=== PATIENT | male | born 1995 | race Caucasian/White ===

== ENCOUNTER 2019-09-01 12:09 | Inpatient (IN) | payer MEDICARE ==
[~2019-09-01] VITALS: Ht 177.8 cm; Wt 73.0 kg
--- NOTE | 2019-09-01 13:10 | NUR ---
RECEIVED REPORT FROM LASHAY ZAFAR AT BEDSIDE. PT ONLY FEELS THAT HE IS DEHYDRATED AT THIS TIME AND HAD NO OTHER CONCERNS.
--- NOTE | 2019-09-01 13:30 | NUR ---
1315: PT SWABBED FOR COVID-19 WITH [facility] SW[facility] IN BOTH NARES. SAMPLE TAKEN TO THE LAB.
--- NOTE | 2019-09-01 13:37 | NUR ---
PT WAS TAKEN TO HIS RM. MET WITH HIS MOTHER MIRIAN WHO WAS STEPPING OUT TO GET SOOME LUNCH. PT HAD BEEN GIVEN PAIN MEDS AND WAS SLEEPING. GAVE COMFORT TO MIRIAN, SHE WILL RETURN LATER. SHE FEELS COMFORTABLE WITH HIS CARE AND GIVES HER THE FREEDOM TO LEAVE. WILL LET PT REST AND FOLLOW NEEDED
--- NOTE | 2019-09-01 14:36 | NUR ---
administered scheduled meds and started second bolus. SLOWED IT DOWN BY HALF IT IS IN HAND VEIN AND IS FAIRLY COLD. PT STATES HE IS FEELING BETTER THAN HE HAS IN DAYS WITH ALL THE FLUIDS.
--- NOTE | 2019-09-01 16:18 | NUR ---
PT UP THE BATHROOM AT THIS TIME. PT HAVING DIARRHEA. PT STEADY ON FEET AND HAS GOTTEN 1.8 L OF FLUID AT THIS TIME AND LOOKS MUCH BETTER THIS AFTERNOON.
--- NOTE | 2019-09-01 18:12 | NUR ---
PATIENT VS AND I&O'S DOCUMENTED. PATIENT IS SITTING IN BED TALKING TO HIS VISTOR. CALL LIGHT WITHIN REACH AND NO FURTHER NEEDS AT THIS TIME.
--- NOTE | 2019-09-01 19:15 | NUR ---
CHARGE NURSE REPORT RECEIVED FROM LASHAY
--- NOTE | 2019-09-01 19:44 | NUR ---
SHIFT REPORT RECEIVED AT BEDSIDE FROM NURSE LOVELL. PT UP IN ROOM AND RETURNED TO BED. PT IS ALERT, ORIENTED AND IN GOOD SPIRITS. NO REQUESTS AT THIS TIME. CALL LIGHT WITHIN REACH.
--- NOTE | 2019-09-01 21:45 | NUR ---
ASSESSMENT COMPLETE. PT IN BED. PT C/O DISCOMFORT AND "NUMBNESS" AT IV INSERTION. IV ASSESSMENT SHOWS NO INFILTRATION, NO PHLEBITIS AND IV FLUSHES EASILY WITH 10ML NS. VSS. BOWEL TONES ACTIVE AND LUNG SOUNDS CLEAR. PT IS INTERESTED IN HIS POC AND ASKS APPROPRIATE QUESTIONS. PT REPORTS NO PAIN. IV INFUSING ORDERED. CALL LIGHT WITHIN REACH AND PT ENCOURAGED TO CALL FOR ANY ASSISTANCE NEEDED.
--- NOTE | 2019-09-01 22:26 | NUR ---
PT POTASSIUM IV INFUSION COMPLETE. PT WITH NO NEEDS AT THIS TIME.
--- NOTE | 2019-09-02 01:41 | NUR ---
IN ROOM FOR VITAL SIGNS. PT WAS SLEEPING ON RIGHT LATERAL SIDE. NO REQUESTS AT THIS TIME. CALL LIGHT WITHIN REACH
--- NOTE | 2019-09-02 06:20 | NUR ---
ASSESSMENT COMPLETE. PT IN BED, ALERT AND ANXIOUS ABOUT PROCEDURE. PT HAD MANY QUESTIONS REGARDING PROCEDURE, ANESTHESIA, POST PROCEDURE. IV STILL PATENT AND INFUSING ORDERED. PT REQUESTS APPLE JUICE AND A CLEAN GOWN BUT DECLINES ASSISTANCE WITH GOWN CHANGE. PT REPORTS 5-6 LIQUID BM THROUGHOUT THE NIGHT.
--- NOTE | 2019-09-02 07:50 | NUR ---
PT IS ALLOW CLEAR LIQUIDS TILL 08 TODAY. JUICE GIVEN AND SOME WATER. TALKED WITH PT ABOUT WHEN WE WILL BE TAKING AWAY PO LIQUIDS.
--- NOTE | 2019-09-02 07:53 | NUR ---
PATIENT RESTING IN BED. DOES NOT WANT WASH CLOTH. CALL LIGHT WITHIN REACH. NO FURTHER NEEDS AT THIS TIME.
--- NOTE | 2019-09-02 08:00 | NUR ---
PT NPO AT THIS TIME. PT HAS BEEN UP TO THE BATHROOM X 2 SO FAR THIS SHIFT. DENIES ANY NEEDS AT THIS TIME
[2019-09-02] MEDS ORDERED: IMODIUM A-D2 M2 PO (08:26)
[2019-09-02] MEDS ORDERED: CULTURELLE1 EACH PO (08:26)
--- NOTE | 2019-09-02 08:26 | NUR ---
MED REC COMPLETE
--- NOTE | 2019-09-02 09:32 | NUR ---
PT MOTHER IS HERE AT THIS TIME.
--- NOTE | 2019-09-02 09:39 | NUR ---
PATIENT RESTING IN BED. VISITING WITH MOM IN ROOM. CALL LIGHT WITHIN REACH. NO FURTHER NEEDS AT THIS TIME.
--- NOTE | 2019-09-02 10:20 | NUR ---
ANSWERED QUESTIONS FOR PT ON WHY HE NEEDS TO NOT TAKE IN ORAL BY MOUTH, BUT WE GIVE HIM LIQUIDS VIA AN IV. ALL QUESTIONS ANSWERED.
--- NOTE | 2019-09-02 12:20 | NUR ---
REPORTED TO PT THE TIME HE MAYBE GOING TO HAVE HIS COLONSCOPY "CAN I HAVE JUST ONE ICE CHIP" NO YOU MAY NOT AT THIS TIME. YOU CAN BRUSH YOUR TEETH AND NOT DRINK ANY WATER AND OR I CAN GIVE YOU A SPONGE THAT WILL WET YOUR MOUTH. PT WILL JUST WAIT!
--- NOTE | 2019-09-02 13:40 | NUR ---
PT TO OR AT THIS NOEL E VIA EMERSON.
--- NOTE | 2019-09-02 14:08 | NUR ---
PT ALERT, ORIENTED AND SUPPORTED BY HIS MOTHER MIRIAN. PT IS LAYING IN BED, TV ON. PT SEEMS UNCOMFORTABLE WITH MY PRESENCE, AND AFTER SEVERAL COMMENTS BY PT THAT CONFIRMED HE DID NOT WANT ME IN RM, GAVE BLESSING, WILL FOLLOW NEEDED
--- NOTE | 2019-09-02 14:25 | NUR ---
PT REMAINS IN THE OR AT THIS TIME.
--- NOTE | 2019-09-02 15:02 | NUR ---
09/02/19 1502 Aleida Suarez 1450 PT ARRIVED IN PACU WIDE AWAKE REMOVING OXYGEN ON HIS OWN. FACE MASK IN PLACE. ABD SOFT. 1500 RESTING. REU.
--- NOTE | 2019-09-02 15:30 | NUR ---
PT RETURNED FROM PACU UP AMBULATED FROM STREACHER TO ROOM AND THEN INTO THE BATHROOM. PT ASKING TO GO HOME AT THIS TIME. "CAN I DO ALL OF THIS IN 4 HOURS AND GO" WILL PROVIDE PT WITH EDUCATIONS ON HIS MEDICATIONS AND THE DISEASE ITSELF.
--- NOTE | 2019-09-02 16:47 | NUR ---
PT TAKING PO LIQUIDS WELL AT THIS TIME. HE HAD CLEAR LIQUID TRAY AND DID WELL WITH IT. ORDERED A FULL LIQUID TRAY FORM HIM AT THIS TIME. PT WOULD LIKE CHAKA, BUT STAFF SAID NO! PT MOTHER REMAINS AT THE BEDSIDE.
--- NOTE | 2019-09-02 17:16 | NUR ---
PT MOVED TO ROOM 108 AT THIS TIME. ALL PERSONAL BELONGINGS MOVED WITH HIM
--- NOTE | 2019-09-02 17:52 | NUR ---
PT UP AMBULATING IN THE CORONEL AND IS TOLERATING ALL PO MEDS SO FAR. WILL SALINE LOCK IV AT THIS TIME.
--- NOTE | 2019-09-02 18:06 | NUR ---
PT HAS TOLERATED FOOD WELL AND SALINE LOCKED. EXPLAINED ALL MEDICATIONS AND WHY HE NEEDS TO TAKE THEM. REFERED PT TO HIS HANDOUTS ON HIS MEDICATIONS AND DIAGONES.
--- NOTE | 2019-09-02 18:11 | NUR ---
PHONE CALL TO DR WINSLOW UPDATED AND NO NEW ORDERS
--- NOTE | 2019-09-02 18:14 | NUR ---
PATIENT RESTING IN BED. INDEPENDENTN AMBULATION AROUND ROOM AND HALLWAYS. FRESH WATER. CALL LIGHT WITHIN REACH. NO FURTHER NEEDS AT THIS TIME.
--- NOTE | 2019-09-02 19:01 | NUR ---
RECEIVED REPORT, PT'S MOM JUST LET. CALL LIGHT IS CLOSE.
--- NOTE | 2019-09-02 21:14 | NUR ---
IN ROOM TO ASSESS PT AND ADMINISTER MEDICATION. PT DENIES PAIN AND WISHES HE COULD EAT MORE. HE STATES THERE IS STILL SOME BLOOD IN HIS BMS. HE HAS FRESH ICEWATER AND APPLEJUICE AT BEDSIDE. HE DENIES FURTHER NEEDS AT THIS TIME. CALL LIGHT IS CLOSE.
--- NOTE | 2019-09-02 23:45 | NUR ---
PT IS RESTING WITH EYES CLOSED, RR IS EVEN AND NONLABORED. CALL LIGHT IS CLOSE.
--- NOTE | 2019-09-03 01:45 | NUR ---
V/S AND I&O TAKEN AND CHARTED.
--- NOTE | 2019-09-03 01:47 | NUR ---
VS & I&O'S ENTERED WITH HELP OF STEPHANI THOMPSON. PT DENIES PAIN AND REPORTS HE STILL HAS DIARRHEA WITH SOME BLOOD IN IT. HE IS VOIDING FINE AND DENIES NEEDS. CALL LIGHT IS CLOSE.
--- NOTE | 2019-09-03 04:18 | NUR ---
PT IS RESTING WITH EYES CLOSED, RR IS EVEN AND NONLABORED. CALL LIGHT IS CLOSE.
--- NOTE | 2019-09-03 06:24 | NUR ---
PT SLEPT WELL, HE WAS INDEPENDENT IN THE ROOM. HE IS VOIDING FINE AND HAD 5 EPISODES OF DIARRHEA WITH SOME BLOOD IN THEM. HE DENIES PAIN, SOB, AND NAUSEA. HE WANTS TO LEAVE EARLY POSSIBLE THIS MORNING. HE STATES HE IS TOLERATING THE FULL LIQUIDS AND WOULD LIKE TO EAT MORE.
--- NOTE | 2019-09-03 06:38 | NUR ---
IN ROOM TO ADMINISTER MORNING MEDICATION AND GET HIS VS AND I&O'S WITH STEPHANI THOMPSON. PT DENIES PAIN AT THIS TIME. HE DENIES FURTHER NEEDS AT THIS TIME. CALL LIGHT IS CLOSE.
--- NOTE | 2019-09-03 09:21 | NUR ---
PT IS DRESSED SITTING ON BED, ATE 100% OF BREAKFAST, DENIES ANY NEEDS, SCHEDULED MEDS TAKEN, MOM IN ROOM, HOPING TO GO HOME THIS MORNING.
[2019-09-03] MEDS ORDERED: DELZICOL400 M1 PO (10:30)
[2019-09-03] MEDS ORDERED: PANTOPRAZOLE SO40 MG PO (10:30)
[2019-09-03] MEDS ORDERED: PREDNISONE10 MG PO (10:34)
--- NOTE | 2019-09-03 11:00 | NUR ---
DR WINSLOW IN TO SEE PT, OK TO DC HOME, REVIEWED DC ORDERS WITH PT AND HIS MOTHER, VERBALIZES UNDERSTANDING OF MEDICATIONS, SX TO REPORT AND FOLLOW UP APPOINTMENT, DIET INFORMATION ALSO PROVIDED. PAHARMACY IN TO TALK TO PT AND MOTHER AT THIS TIME ALSO. DENIES ANY QUESTIONS OR CONCERNS, SL DC INTACT.
--- NOTE | 2019-09-03 11:46 | OR ---
[facility] [address] [place], [place] [address] Signed DATE OF OPERATION: 09/02/2019 SURGEON: Charly Winslow MD PREOPERATIVE DIAGNOSES: 1. Profound progressive diarrhea, probable inflammatory bowel disease. 2. Family history of ulcerative colitis (sister). 3. Family history of colon cancer (father). POSTOPERATIVE DIAGNOSIS: Pancolitis, most consistent with ulcerative colitis, severe. PROCEDURE: Total colonoscopy to cecum with biopsies. ANESTHESIA: Intravenous sedation; fentanyl 200 mcg and Versed 10 mg. INDICATIONS: This 23-year-old white young man is a patient of Dr. Dos Santos, but has lived in the [facility] ([place] and works for [employer]). He has had progressive diarrhea with some rectal bleeding associated with this. He has been noted to have clinical dehydration, was admitted to the hospital by me yesterday after presentation to my office. He was empirically started on hydrocortisone 100 mg IV q.8 hours on the high suspicion of inflammatory bowel disease. Notably, his sister has ulcerative colitis and has been under my care in the past. Additionally, his father has advanced stage colon cancer and is undergoing palliative immunotherapy for that and doing reasonably well. Upon admission, the patient was found to have low albumin (2.8), and elevated C-reactive protein greater than 160, a decreased hematocrit of 32.9, and clinical dehydration, for which fluid resuscitation has been undertaken. He is now to undergo colonoscopy to establish the clinical diagnosis of inflammatory bowel disease, likely ulcerative colitis. He understands the risks of bleeding, infection, and perforation related to colonoscopy and wished to proceed. FINDINGS: Indeed he had severe colitis. Pancolitis was noted, extending from rectum to the cecum. Attempts at intubation of the ileum were unsuccessful due to inflammatory changes, but most likely the underlying colitis is ulcerative colitis in fact. There was no sign of polyps, diverticular formation, or cancer or other abnormalities. Electronically Signed By: CHARLY WINSLOW MD 09/03/19 1146 PATIENT NAME: JARETH TERAN OPERATIVE REPORT DATE OF : [birth year] REPORT #: [id number] PHYSICIAN: CHARLY WINSLOW MD PCP: MAISHA DOS SANTOS MD REPORT IS CONFIDENTIAL AND NOT TO BE RELEASED WITHOUT AUTHORIZATION [facility] [address] [place], [place] [address] Signed DESCRIPTION OF PROCEDURE: The patient was brought to the endoscopy suite and placed in lateral decubitus position. Given intravenous sedation to the point of slurred speech and nystagmus with full cardiopulmonary monitoring. Digital rectal examination was undertaken, was normal. An Olympus video colonoscope was passed in the rectum and then immediately noted was significant inflammation of the rectum. The scope was carefully manipulated throughout the colon ultimately intubating the cecum itself throughout the colon, marked inflammation was noted. The cecum was quite inflamed. Biopsies were obtained. The ileocecal valve was identified, but attempts to intubate were unsuccessful due to the edema, friability and inflammation of the area. The scope was withdrawn and biopsies taken throughout the colon upon withdrawal of scope, including the rectum. The scope was removed. The patient was taken to recovery room in good condition. CONCLUDING DIAGNOSIS: [id number] ulcerative colitis extending from rectum to cecum. No evidence of malignancy. PLAN: He has been started on hydrocortisone intravenously administered. We will transition to prednisone orally. Initiate Flagyl antibiotic orally. Prophylaxis against peptic disease with PPI medication and initiate Lialda. MD KIMBERLY Garcia/KARYNAL /[id number] cc: Dr. Dos Santos Copies: ~ Electronically Signed By: CHARLY WINSLOW MD 09/03/19 1146 PATIENT NAME: JEFFRYJARETH DEAN OPERATIVE REPORT DATE OF : [birth year] REPORT #: [id number] PHYSICIAN: CHARLY WINSLOW MD PCP: MAISHA DOS SANTOS MD REPORT IS CONFIDENTIAL AND NOT TO BE RELEASED WITHOUT AUTHORIZATION
--- NOTE | 2019-09-03 11:46 | HP ---
[facility] [address], [place] [address] Signed ADMISSION DATE: 09/01/2019 REASON FOR ADMISSION: Profound diarrhea and dehydration. HISTORY OF PRESENT ILLNESS: This 23-year-old white young man presented to my office today with complaints of progressive unrelenting diarrhea and clinical findings of dehydration. I was called by his mother on Sunday (today is Sunday) with her recounting his complaint of severe diarrhea, which has been progressive over the past few weeks. The patient has a history in the past year or so of C difficile colitis, which was of an enigmatic origin as he had not had antibiotic therapy or anything of that sort. The patient generally lives in [facility] working for [employer] currently. Treatment for H pylori had been undertaken with vancomycin orally administered in the past with subsequent recurrence of symptoms, confirming recurrent disease treated on that occasion with Flagyl and with vancomycin. His recent bout of severe diarrhea was accompanied by a small amount of bleeding, but not much, but far worse in the past. Recent C difficile assessment was considered negative, this is by patient report. My discussion with his mother on Sunday was such that I suspected inflammatory bowel disease; his older sister was diagnosed by me a number of years ago with ulcerative colitis and she is treated for that with medication episodically. His family history in addition to his sister with ulcerative colitis includes his father who has advanced colon cancer and has been treated with palliative immunotherapy with good effect over the past 2 years or so. The patient had been advised via his mother that admission to the hospital a few days ago may be advisable as he had rather profound diarrhea. A fair amount of clinical symptoms of dehydration. The patient opted instead to attempt continued hydration at home. The patient tells me patient that he has at least 10 bowel movements a night and probably 20 during the day. He was seen in my office today. He did have signs of clinical dehydration. No sign of systemic toxicity proper. A plan was outlined for colonoscopy this week, but with his clinical dehydration more prompt evaluation is more appropriate. Electronically Signed By: CHARLY WINSLOW MD 09/03/19 1146 PATIENT NAME: JARETH TERAN [place] HISTORY AND PHYSICAL DATE OF : [birth year] REPORT #: [id number] PHYSICIAN: CHARLY WINSLOW MD PCP: MAISHA JONES MD REPORT IS CONFIDENTIAL AND NOT TO BE RELEASED WITHOUT AUTHORIZATION [address] [address] Signed PAST MEDICAL HISTORY: Rather unremarkable other than the C difficile problem in the past year or so. SOCIAL HISTORY: He grew up in [place], [place] and graduated from [employer] with a communications major. He subsequently learned a master's degree and now works at [employer] in [facility]. REVIEW OF SYSTEMS: He has complaints of thirst and dry mouth. He has bowel movements at least 30 a day as described. He has had a small amount of blood in them. He denies any chest pain. He has had no fever or chills. Denies any exposure to any person with COVID-19. PHYSICAL EXAMINATION: GENERAL: A well-developed, well-nourished white young man, who is not delirious or systemically toxic so far as can be told. HEENT: Mucous membranes are slightly dry. Trachea is midline. CHEST: Clear. HEART: Regular, without murmur. ABDOMEN: Scaphoid and soft. There is no sign of ascites. He has no focal tenderness. EXTREMITIES: Show no clubbing, cyanosis, or edema. ASSESSMENT: The patient has been admitted for his clinical dehydration related to profound diarrhea. I suspect strongly this is a presentation of ulcerative colitis, though other causes certainly can be possible. It is notable that his C difficile test recently was negative. PLAN: Empirically, treat with fluid resuscitation and hydrocortisone 100 mg IV q.8 hours. Correction of any electrolyte abnormalities will be undertaken, I suspect to be low on potassium and magnesium. Consideration for prompt colonoscopy to affirm the clinical suspicion of ulcerative colitis will then be undertaken. If so, appropriate initiation of therapy for same will be undertaken. I have reviewed all this with the patient and his mother including the risks of bleeding, infection, and perforation related to colonoscopy, they understand and agree. Electronically Signed By: CHARLY WINSLOW MD 09/03/19 1146 PATIENT NAME: JARETH TERAN HISTORY AND PHYSICAL DATE OF : [birth year] REPORT #: [id number] PHYSICIAN: CHARLY WINSLOW MD PCP: MAISHA JONES MD REPORT IS CONFIDENTIAL AND NOT TO BE RELEASED WITHOUT AUTHORIZATION [facility] [address], [place] [address] Signed Charly Winslow MD JM/MODL /[id number] Copies: ~ Electronically Signed By: CHARLY WINSLOW MD 09/03/19 1146 PATIENT NAME: JARETH TERAN [place] HISTORY AND PHYSICAL DATE OF : [birth year] REPORT #: [id number] PHYSICIAN: CHARLY WINSLOW MD PCP: MAISHA JONES MD REPORT IS CONFIDENTIAL AND NOT TO BE RELEASED WITHOUT AUTHORIZATION
--- NOTE | 2019-09-04 10:58 | PATH ---
[facility] [address] [place], [place] [address] Signed SPECIMEN(S): A CECUM SPECIMEN(S): B DESCENDING SPECIMEN(S): C SIGMOID SPECIMEN(S): D RECTUM SPECIMEN SOURCE: A. CECUM B. DESCENDING C. SIGMOID D. RECTUM CLINICAL HISTORY: Abdominal pain; diarrhea/ulcerative colitis, severe. Postop: Pancolitis. MICROSCOPIC DESCRIPTION: Histologic sections of all submitted blocks are examined by light microscopy. These findings, together with the gross examination, support the pathologic diagnosis. FINAL PATHOLOGIC DIAGNOSIS: A. Colon, cecum, biopsy: - Chronic, active colitis. - Negative for dysplasia or malignancy. B. Colon, descending, biopsy: - Chronic, active colitis. - Negative for dysplasia or malignancy. C. Colon, sigmoid, biopsy: - Chronic, active colitis. - Negative for dysplasia or malignancy. D. Rectum, biopsy: - Chronic, active proctitis. - Negative for dysplasia or malignancy. COMMENT: The clinical impression of ulcerative colitis is noted. The findings in all four biopsy sites are similar and demonstrate colonic and rectal mucosa with cryptitis, crypt abscesses, crypt architectural distortion, mucosal erosion, and basal lymphoplasmacytosis. Paneth cell metaplasia is seen within the right colon and the rectal mucosa. No granulomata, infectious organisms, or viral cytopathic changes are seen. The findings are compatible with inflammatory bowel disease and ulcerative colitis is favored. As with all cases of inflammatory bowel PATIENT NAME: JARETH TERAN PATHOLOGY DATE OF : [birth year] REPORT #: [id number] PHYSICIAN: DANY PATHOLOGY PCP: MAISHA JONES MD REPORT IS CONFIDENTIAL AND NOT TO BE RELEASED WITHOUT AUTHORIZATION [facility] [address] [place], [place] [address] Signed disease, correlation with colonoscopic and clinical finding is necessary. NAL:cml:C2NR GROSS DESCRIPTION: Four specimens are received in four containers, labeled "NL." A. The specimen, labeled "NL, cecum biopsy," is received in formalin and consists of two hernandez soft tissue fragment(s) that measure 0.2 cm in greatest dimension. The specimen is entirely submitted in cassette (A1). B. The specimen, labeled "NL, descending colon biopsy," is received in formalin and consists of four hernandez soft tissue fragment(s) that measure 0.2 cm in greatest dimension. The specimen is entirely submitted in cassette (B1). C. The specimen, labeled "NL, sigmoid colon biopsy," is received in formalin and consists of four hernandez soft tissue fragment(s) that measure 0.2 cm in greatest dimension. The specimen is entirely submitted in cassette (C1). D. The specimen, labeled "NL, rectum biopsy," is received in formalin and consists of four hernandez soft tissue fragment(s) that measure 0.2 cm in greatest dimension. The specimen is entirely submitted in cassette (D1). JS (under the direct supervision of a pathologist) The Gross Description was prepared using a voice recognition system. The report was reviewed for accuracy; however, sound-alike word errors, addition and/or deletions may occur. If there is any question about this report, please contact Client Services. PERFORMING LABORATORY: The technical component was performed by [employer], [address] [place] [id number] (House Painting Instructor: Dede Marino MD; CLIA# [id number]). Professional interpretation was performed by [facility], [address] [address] (CLIA# [id number]). Diagnostician: Alice Cardona MD Pathologist Electronically Signed 09/04/2019 Copies: PATIENT NAME: JEFFRYPARISHJARETH DEAN PATHOLOGY DATE OF : [birth year] REPORT #: [id number] PHYSICIAN: DANY PATHOLOGY PCP: MAISHA JONES MD REPORT IS CONFIDENTIAL AND NOT TO BE RELEASED WITHOUT AUTHORIZATION [facility] [address] [place], [place] [address] Signed ~ PATIENT NAME: DONOVAN TERANaWde [place] PATHOLOGY DATE OF : [birth year] REPORT #: [id number] PHYSICIAN: DANY PATHOLOGY PCP: MAISHA JONES MD REPORT IS CONFIDENTIAL AND NOT TO BE RELEASED WITHOUT AUTHORIZATION
--- NOTE | 2019-09-04 11:31 | DS ---
[facility] [address], [place] [address] Signed ADMISSION DATE: 09/01/2019 DISCHARGE DATE: 09/03/2019 REASON FOR ADMISSION: This 23-year-old white young man presented to my office on the day of admission with progressive unrelenting diarrhea and clinical findings of dehydration. I had been called by his mother on Sunday (day of evaluation Sunday) with her recounting his complaint of severe diarrhea, which has been progressive over the past several weeks. The patient has a history in the past year of C difficile colitis, was without antibiotic therapy previously and treated for recurrence at least once initially with vancomycin and ultimately also with Flagyl. He had called a nuclear station operator in his health care system ([place], [place]) Dr. Gregory. A plan for colonoscopy was set up for September 14. The patient was quite significantly dehydrated having approximately 30 bowel movements per day as well as blood per rectum. He was directly admitted for further evaluation and care for probable colitis (new diagnosis) due to his clinical dehydration. The patient has a significant family history of ulcerative colitis; his sister was diagnosed with that by me in her teens. She is under minimal medical therapy for this and episodically has flares, which were easily treated. He has numerous other family members including an aunt and at least one grandmother with known ulcerative colitis, however. The patient's past medical history is significant only for the C difficile colitis that was diagnosed previously based on stool assessment. PERTINENT PHYSICAL EXAMINATION: GENERAL: A well-developed, well-nourished, white young man, who is not delirious or systemically toxic. HEENT: Mucous membranes are dry. Trachea is midline. CHEST: Clear. HEART: Regular without murmur. ABDOMEN: Soft. There is no ascites. He had no focal tenderness, only mild generalized tenderness. EXTREMITIES: He had no clubbing, cyanosis, or edema. LABORATORY DATA: At admission showed a white count of 12.7, hematocrit of 32.9, platelets of 305,000. He had a potassium of 3.3, chloride of 89, glucose of 125, calcium of 7.5, magnesium of 1.6. Liver enzymes were normal. C-reactive protein was 189.4, albumin was 5.7. Electronically Signed By: CHARLY WINSLOW MD 09/04/19 1131 PATIENT NAME: JARETH TERAN DISCHARGE SUMMARY DATE OF : [birth year] REPORT #: [id number] PHYSICIAN: CHARLY WINSLOW MD PCP: MAISHA DOS SANTOS MD REPORT IS CONFIDENTIAL AND NOT TO BE RELEASED WITHOUT AUTHORIZATION [facility] [address], [place] [address] Signed HOSPITAL COURSE: The patient was clinically considered likely to have significant ulcerative colitis with significant dehydration. He was fluid resuscitated and electrolytes corrected. He was started at admission on hydrocortisone 100 mg IV q.8 hours. The following day, he underwent a total colonoscopy. He was affirmed to have findings consistent with severe ulcerative colitis extending from the rectum to the cecum. The ileum was unable to be intubated despite attempts to do so due to significant edema and distortion of the ileocecal valve. Multiple biopsies were obtained. The pathology is pending. The findings are completely consistent with ulcerative colitis. He was begun on prednisone 40 mg p.o. daily, mesalamine 2.4 g daily. Maintain on PPI medication to avoid or diminished chances of ulceration and started on Flagyl 250 mg p.o. t.i.d. He had marked improvement of his symptoms with diminishment of his diarrhea. A low-fiber diet was tolerated. It is anticipated that he will be discharged with prednisone and mesalamine, and PPI medication, and a course of Flagyl antibiotic. A tapering dose from 40 mg down to 10 mg will be undertaken and mesalamine maintained. He is anticipating a followup visit with his nuclear station operator, Dr. Gregory in the [facility] in the [facility]. I will schedule a followup appointment in a month to provide local access should he be having problems. I have advised also that he maintain a low-fiber diet for at least 4 weeks. I would recommend repeat colonoscopy in several months to assess the level of mucosal healing, which should be the goal of therapy. It is uncertain at this time whether he will need a biologic agent as a long-term management strategy-hopefully not. As he has had prompt response to steroids and other measures, I am hopeful and optimistic that he may be maintained with mesalamine only. This remains to be seen of course. Advancement to biologic agent (Humira and others) or ultimately total proctocolectomy with ileoanal pull-through remain options as well if control cannot be achieved with lesser measures. I have discussed all of this with the patient and his mother in detail and they understand. DISCHARGE MEDICATIONS: 1. Pantoprazole 40 mg p.o. daily, #30, refill 3. 2. Mesalamine 400 mg two tablets p.o. t.i.d., #120, refill 3. Electronically Signed By: CHARLY WINSLOW MD 09/04/19 1131 PATIENT NAME: JARETH TERAN [place] DISCHARGE SUMMARY DATE OF : [birth year] REPORT #: [id number] PHYSICIAN: CHARLY WINSLOW MD PCP: MAISHA DOS SANTOS MD REPORT IS CONFIDENTIAL AND NOT TO BE RELEASED WITHOUT AUTHORIZATION [facility] [address], [place] [address] Signed 3. Prednisone 10 mg tablets 4 tabs p.o. daily for 2 weeks, then 3 tabs p.o. daily for 2 weeks, then 2 tablets p.o. daily for 2 weeks, then 1 tablet p.o. daily for 2 weeks, then 1 tablet p.o. every other day for 1 week and then stop. 4. He can continue his lactobacillus rhamnosus (Culturelle) probiotic one cap daily if he wishes. I have advised him to discontinue the loperamide 2 mg capsule for diarrhea as his diarrhea is improving. 5. Flagyl 250 mg po tid x 10 days. DISCHARGE DIAGNOSES: 1. New onset diagnosis of ulcerative colitis (pancolitis). 2. History of Clostridium difficile infection in the past recent test negative 3. Strong family history of ulcerative colitis. 4. Anemia, hypoalbumenemia, 5. severe dehydration from protracted diarrhea ( greater than 30 BM per day) MD KIMBERLY Garcia/KARYNAL /[id number] cc: Finn Gregory MD [facility]/[place] Maisha Dos Santos MD Copies: MAISHA DOS SANTOS MD ~ Electronically Signed By: CHARLY WINSLOW MD 09/04/19 1131 PATIENT NAME: JARETH TERAN DISCHARGE SUMMARY DATE OF : [birth year] REPORT #: [id number] PHYSICIAN: CHARLY WINSLOW MD PCP: MAISHA DOS SANTOS MD REPORT IS CONFIDENTIAL AND NOT TO BE RELEASED WITHOUT AUTHORIZATION
== END 2019-09-03 11:10 | disposition home or self-care (01) | DRG 641 ==
LOC: MS 12:09
PROVIDERS: ADMIT Surgery
PROC: 0DBE8ZX Excision of Large Intestine, Via Natural or Artificial Opening Endoscopic, Diagnostic (ICD-10-PCS; 2019-09-02)
PROC: 0DBP8ZX Excision of Rectum, Via Natural or Artificial Opening Endoscopic, Diagnostic (ICD-10-PCS; 2019-09-02)
PROC: 0DBH8ZX Excision of Cecum, Via Natural or Artificial Opening Endoscopic, Diagnostic (ICD-10-PCS; principal; 2019-09-02 10:15)
DX: E86.0 Dehydration (principal); K51.00 Ulcerative (chronic) pancolitis without complications; Z86.19 Personal history of other infectious and parasitic diseases; Z80.0 Family history of malignant neoplasm of digestive organs; Z83.79 Family history of other diseases of the digestive system
CPT/HCPCS: 36415; 80053; 82247; 82465; 83615; 83735; 84100; 84478; 84550; 85025; 86140; 99153; C9803; G0500; J1720; J2250; J3010; J3475; J3480; J7060; J7121; J7512; U0002

== ENCOUNTER 2020-03-07 08:09 | Emergency (ER) | payer MEDICARE ==
[~2020-03-07] VITALS: Ht 177.8 cm; Wt 73.0 kg
[~2020-03-07 08:09] MED LIST: CULTURELLE1 EACH PO; DELZICOL400 M1 PO; IMODIUM A-D2 M2 PO; PANTOPRAZOLE SO40 MG PO; PREDNISONE10 MG PO
[2020-03-07] MEDS ORDERED: VANCOMYCIN HCL125 MG PO (08:28)
[2020-03-07] MEDS ORDERED: LIALDA1.2 GM PO (08:29)
== END 2020-03-07 09:53 | disposition home or self-care (01) ==
LOC: ED 08:09
DX: M25.571 Pain in right ankle and joints of right foot (principal); Z79.899 Other long term (current) drug therapy
CPT/HCPCS: 73630; 99283-25